=== PATIENT | female | born 1945 | race Caucasian/White ===

== ENCOUNTER 2017-11-07 13:25 | Emergency (ER) | payer MEDICARE ==
[2017-11-07] MEDS ORDERED: Ondansetron ODT 4 MG TAB ONE (13:53)
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
== END 2017-11-07 14:15 | disposition home or self-care (01) ==
LOC: MADERS 13:25
DX: S70.01XA Contusion of right hip, initial encounter (principal); V43.62XA Car passenger injured in collision with other type car in traffic accident, initial encounter
CPT/HCPCS: Q0162